=== PATIENT | female | born 1980 | race Caucasian/White ===

== ENCOUNTER 2021-06-24 13:49 | Inpatient (IN) | payer MEDICAID ==
[2021-06-24] MEDS ORDERED: Morphine 4 MG/ML VIAL ONE ×2 (14:06→21:50)
[2021-06-24] MEDS ORDERED: Ondansetron PF 4 MG/2 ML Vial ONE (14:06)
[2021-06-24 14:27] LABS: #Basophils 0.1 10x3/uL (0.0-0.2); #Neutrophils 14.7 10x3/uL (1.5-8.4); %Basophils 0.3 % (0.0-2.0); %Eosinophils 0.2 % (0.0-6.0); %Lymphocytes 12.9 % (18.0-47.0); %Monocytes 5.4 % (0.0-10.0); %Neutrophils 80.4 % (40.0-75.0); Hemoglobin 10.9 g/dL (12.0-15.5); Mean Corpuscular HGB CONC 30.1 g/dL (32.0-36.0); Mean Corpuscular Hemoglobin 23.9 pg (27.0-33.0); Mean Corpuscular Volume 79.2 fl (81.6-98.3); Mean Platelet Volume 9.6 fl (7.4-10.4); Platelet Count 360 10x3/uL (150-450); RBC Distribution Width 16.8 % (11.5-14.5); Red Blood Cell (RBC) Count 4.57 10x6/uL (3.90-5.03); White Blood Cell (WBC) Count 18.3 10x3/uL (3.5-10.5)
[2021-06-24 14:45] LABS: ALT (SGPT) 22 U/L (8-55); AST (SGOT) 19 U/L (5-34); Albumin 3.9 g/dL (3.5-5.0); Alkaline Phosphatase 91 U/L (40-110); Anion Gap 17 mmol/L (10-20); BUN (Urea Nitrogen) 15 mg/dL (7.0-18.7); Bilirubin, Total 0.4 mg/dL (0.2-1.2); Calc. Creatinine Clearance 0 mL/min (70-130); Calcium 9.2 mg/dL (7.8-10.44); Carbon Dioxide 20 mmol/L (22-29); Chloride 106 mmol/L (98-107); Globulin 3.4 g/dL (2.4-3.5); Glucose 165 mg/dL (70-105); Potassium 3.5 mmol/L (3.5-5.1); Protein, Total 7.3 g/dL (6.0-8.3); Sodium 139 mmol/L (136-145)
[2021-06-24 14:50] LABS: Hypochromia SLIGHT = 6-15 cells (100X) (0-5/hpf)
[2021-06-24 14:51] LABS: Platelet Morphology Comment Appears Adequate
[2021-06-24] MEDS ORDERED: Promethazine HCl 25 MG/ML VIAL ONE ×2 (15:12→19:51)
[2021-06-24] MEDS ORDERED: HYDROmorphone 0.5 MG/0.5 ML SYRINGE ONE ×3 (15:12→19:44)
[2021-06-24 15:35] LABS: Lipase 12917 U/L (8-78)
[2021-06-24] MEDS ORDERED: Metoclopramide HCl 10 MG/2 ML VIAL ONE (16:47)
[2021-06-24 17:13] LABS: Bilirubin Neg (Negative); Blood, Urine Negative (Negative); Clarity Slightly Cloudy (Clear); Glucose, Urine (Dipstick) Normal (Negative); Ketone, Urine 5 mg/dL (Negative); Leukocyte Negative (Negative); Nitrite Negative (Negative); Protein, Urine (Dipstick) 15 mg/dl (Neg-Trace); Urobilinogen Normal mg/dL (Less than 2)
[2021-06-24 17:16] LABS: Pregnancy Test - Urine (BHCG) Negative (Negative)
[2021-06-24 17:17] LABS: Pregu Control Background? CLEAR/WHITE (CLR/WHITE); Pregu Control Bar Appear? YES (CONTROL BAR)
[2021-06-24 17:41] LABS: SARS-CoV-2 NAA Rapid Test Not Detected (NotDetected)
[2021-06-24] MEDS ORDERED: Dextrose 50% Abboject 50 ML SYRINGE SLOW IVP PRN (17:58)
[2021-06-24] MEDS ORDERED: Dextrose 5% in Water 1,000 ML IV PRN (17:58)
[2021-06-24 18:23] LABS: BHCG - Serum Negative (NEGATIVE); Pregs Control Background? CLEAR/WHITE (CLR/WHITE); Pregs Control Bar Appear? YES (CONTROL BAR)
[2021-06-24] MEDS ORDERED: HYDROmorphone 0.5 MG/0.5 ML SYRINGE SLOW IVP PRN (18:36)
[2021-06-24] MEDS: Lactated Ringer's 1,000 ML IV SCH (19:01)
[2021-06-24 19:09] LABS: Alcohol Less than 10 mg/dL (Less than 10); Cardiac Risk 2.8 (Less than 4.5); Cholesterol 169 mg/dl (< 200 Desired); HDL Cholesterol 60 mg/dL (>60 Neg Risk); LDL Cholesterol, Calculated 98 mg/dL; Triglycerides 57 mg/dL (Less than 150)
[2021-06-24] MEDS: Promethazine HCl 25 MG/ML VIAL IM PRN (19:54)
[2021-06-24] MEDS: HYDROmorphone 0.5 MG/0.5 ML SYRINGE SLOW IVP PRN (19:56)
[2021-06-24 20:47] LABS: Hemoglobin A1c 6.1 % (4.0-6.0)
[2021-06-24] MEDS: Morphine 4 MG/ML VIAL SLOW IVP PRN (21:55)
[2021-06-25] MEDS ORDERED: HYDROmorphone 0.5 MG/0.5 ML SYRINGE ONE (00:12)
[2021-06-25] MEDS: HYDROmorphone 0.5 MG/0.5 ML SYRINGE SLOW IVP PRN ×3 (00:16→16:20)
[2021-06-25] MEDS: Lactated Ringer's 1,000 ML IV SCH ×6 (00:43→21:05)
[2021-06-25] MEDS: Promethazine HCl 25 MG/ML VIAL IM PRN ×4 (02:19→21:05)
[2021-06-25] MEDS: Morphine 4 MG/ML VIAL SLOW IVP PRN ×4 (02:19→21:04)
[2021-06-25 03:30] VITALS: BMI 36.8
[2021-06-25 04:41] LABS: #Monocytes 0.9 10x3/uL (0.0-1.1); #Neutrophils 17.1 10x3/uL (1.5-8.4); %Basophils 0.2 % (0.0-2.0); %Lymphocytes 4.1 % (18.0-47.0); %Monocytes 4.6 % (0.0-10.0); %Neutrophils 90.6 % (40.0-75.0); Mean Corpuscular Hemoglobin 23.8 pg (27.0-33.0); Mean Corpuscular Volume 79.4 fl (81.6-98.3); Mean Platelet Volume 9.6 fl (7.4-10.4); Platelet Count 272 10x3/uL (150-450); RBC Distribution Width 16.8 % (11.5-14.5); Red Blood Cell (RBC) Count 5.04 10x6/uL (3.90-5.03); White Blood Cell (WBC) Count 18.9 10x3/uL (3.5-10.5)
[2021-06-25] MEDS: HYDROcodone/Acetaminophen 5/325 mg Tablet PO PRN ×3 (05:19→22:49)
[2021-06-25 05:21] LABS: ALT (SGPT) 22 U/L (8-55); AST (SGOT) 20 U/L (5-34); Albumin 3.6 g/dL (3.5-5.0); Alkaline Phosphatase 95 U/L (40-110); Anion Gap 15 mmol/L (10-20); BUN (Urea Nitrogen) 13 mg/dL (7.0-18.7); Bilirubin, Total 0.3 mg/dL (0.2-1.2); Calc. Creatinine Clearance 162 mL/min (70-130); Calcium 8.7 mg/dL (7.8-10.44); Carbon Dioxide 20 mmol/L (22-29); Chloride 106 mmol/L (98-107); Globulin 3.6 g/dL (2.4-3.5); Glucose 227 mg/dL (70-105); Lipase 968 U/L (8-78); Magnesium 1.7 mg/dL (1.6-2.6); Phosphorus 3.7 mg/dL (2.3-4.7); Potassium 4.4 mmol/L (3.5-5.1); Protein, Total 7.2 g/dL (6.0-8.3); Sodium 137 mmol/L (136-145)
[2021-06-25] MEDS: HumaLOG 300 UNITS/3 ML VIAL SC PRN ×2 (05:37→22:49)
[2021-06-25 05:56] LABS: Amphetamine Not Detected (NotDetected); Barbiturates Screen Not Detected (NotDetected); Benzodiazepine Screen Not Detected (NotDetected); Cocaine Metabolite Screen Not Detected (NotDetected); Methadone Not Detected (NotDetected); Methamphetamine Not Detected (NotDetected); Opiate Screen Detected (NotDetected); Oxycodone Screen Not Detected (NotDetected); Phencyclidine (PCP) Not Detected (NotDetected); THC/Cannabinoid Screen Not Detected (NotDetected); Tricyclic Screen Not Detected (NotDetected)
[2021-06-25] MEDS ORDERED: Lactated Ringer's 1,000 ML IV SCH (08:00)
[2021-06-25] MEDS: Simethicone 40 MG/0.6 ML Drop 30 ML BOT PO PRN (22:50)
[2021-06-26] MEDS: HYDROmorphone 0.5 MG/0.5 ML SYRINGE SLOW IVP PRN ×5 (00:11→21:55)
[2021-06-26] MEDS: Lactated Ringer's 1,000 ML IV SCH ×8 (01:10→23:45)
[2021-06-26] MEDS: Morphine 4 MG/ML VIAL SLOW IVP PRN ×4 (03:07→20:52)
[2021-06-26 05:35] LABS: Anion Gap 18 mmol/L (10-20); BUN (Urea Nitrogen) 11 mg/dL (7.0-18.7); Calc. Creatinine Clearance 159 mL/min (70-130); Carbon Dioxide 22 mmol/L (22-29); Chloride 102 mmol/L (98-107); Potassium 4.3 mmol/L (3.5-5.1); Sodium 138 mmol/L (136-145)
[2021-06-26 05:36] LABS: ALT (SGPT) 16 U/L (8-55); AST (SGOT) 29 U/L (5-34); Albumin 3.1 g/dL (3.5-5.0); Alkaline Phosphatase 121 U/L (40-110); Bilirubin, Total 0.7 mg/dL (0.2-1.2); Calcium 9.1 mg/dL (7.8-10.44); Globulin 3.1 g/dL (2.4-3.5); Glucose 162 mg/dL (70-105); Lipase 986 U/L (8-78); Protein, Total 6.2 g/dL (6.0-8.3)
[2021-06-26 05:40] LABS: Hemoglobin 10.7 g/dL (12.0-15.5); Mean Corpuscular HGB CONC 29.5 g/dL (32.0-36.0); Mean Corpuscular Hemoglobin 23.9 pg (27.0-33.0); Mean Corpuscular Volume 81.2 fl (81.6-98.3); Platelet Count 278 10x3/uL (150-450); RBC Distribution Width 17.2 % (11.5-14.5); Red Blood Cell (RBC) Count 4.47 10x6/uL (3.90-5.03); White Blood Cell (WBC) Count 26.6 10x3/uL (3.5-10.5)
[2021-06-26 07:23] LABS: Band 28 % (5-11); Lymphocytes 4 % (21-51); Metamyelocyte 1 % (0-0); Monocytes 5 % (0-10); Neutrophil 62 % (42-75)
[2021-06-26 07:25] LABS: Hypochromia SLIGHT = 6-15 cells (100X) (0-5/hpf); Microcytosis SLIGHT = 6-15 cells (100X) (0-5/hpf)
[2021-06-26 07:26] LABS: Platelet Morphology Comment Appears Adequate
[2021-06-26] MEDS ORDERED: Lactated Ringer's 1,000 ML IV SCH ×2 (09:00)
[2021-06-26] MEDS ORDERED: Piperacillin/Tazobactam 3.375 GM in Sodium Chloride 0.9% 100 ML IVPB SCH (10:00)
[2021-06-26] MEDS: HumaLOG 300 UNITS/3 ML VIAL SC PRN (12:06)
[2021-06-26] MEDS: Piperacillin/Tazobactam 3.375 GM in Sodium Chloride 0.9% 100 ML IVPB SCH ×2 (15:40→21:17)
[2021-06-26] MEDS ORDERED: Enoxaparin Sodium 40 MG/0.4 ML SYRINGE SC SCH (15:45)
[2021-06-26] MEDS: Promethazine HCl 25 MG/ML VIAL IM PRN (21:10)
[2021-06-27] MEDS: Morphine 4 MG/ML VIAL SLOW IVP PRN ×5 (02:09→22:30)
[2021-06-27] MEDS: Promethazine HCl 25 MG/ML VIAL IM PRN ×5 (02:10→22:33)
[2021-06-27] MEDS ORDERED: Morphine 2 MG/ML VIAL SLOW IVP SCH (03:15)
[2021-06-27] MEDS: HYDROmorphone 0.5 MG/0.5 ML SYRINGE SLOW IVP PRN ×3 (03:58→13:48)
[2021-06-27] MEDS: Lactated Ringer's 1,000 ML IV SCH ×5 (05:50→20:48)
[2021-06-27] MEDS: Piperacillin/Tazobactam 3.375 GM in Sodium Chloride 0.9% 100 ML IVPB SCH ×3 (05:51→21:00)
[2021-06-27 06:27] LABS: Anion Gap 12 mmol/L (10-20); BUN (Urea Nitrogen) 9 mg/dL (7.0-18.7); Bilirubin, Total 0.8 mg/dL (0.2-1.2); Calc. Creatinine Clearance 179 mL/min (70-130); Calcium 8.6 mg/dL (7.8-10.44); Carbon Dioxide 27 mmol/L (22-29); Chloride 102 mmol/L (98-107); Glucose 182 mg/dL (70-105); Potassium 3.9 mmol/L (3.5-5.1); Protein, Total 5.9 g/dL (6.0-8.3); Sodium 137 mmol/L (136-145)
[2021-06-27 06:28] LABS: ALT (SGPT) 16 U/L (8-55); AST (SGOT) 27 U/L (5-34); Albumin 2.6 g/dL (3.5-5.0); Alkaline Phosphatase 84 U/L (40-110); Globulin 3.3 g/dL (2.4-3.5); Lipase 452 U/L (8-78)
[2021-06-27 07:17] LABS: #Neutrophils 16.4 10x3/uL (1.5-8.4); %Basophils 0.1 % (0.0-2.0); %Eosinophils 0.1 % (0.0-6.0); %Lymphocytes 4.9 % (18.0-47.0); %Monocytes 5.3 % (0.0-10.0); %Neutrophils 88.7 % (40.0-75.0); Hemoglobin 9.1 g/dL (12.0-15.5); Mean Corpuscular HGB CONC 29.5 g/dL (32.0-36.0); Mean Corpuscular Hemoglobin 23.9 pg (27.0-33.0); Mean Corpuscular Volume 81.1 fl (81.6-98.3); Platelet Count 215 10x3/uL (150-450); White Blood Cell (WBC) Count 18.5 10x3/uL (3.5-10.5)
[2021-06-27 07:22] LABS: Hypochromia MODERATE=16-30 cells (100X) (0-5/hpf); Platelet Morphology Comment Appears Adequate
[2021-06-27] MEDS: Enoxaparin Sodium 40 MG/0.4 ML SYRINGE SC SCH (09:29)
[2021-06-27] MEDS: Simethicone 40 MG/0.6 ML Drop 30 ML BOT PO PRN ×2 (09:31→12:29)
[2021-06-27] MEDS ORDERED: Lactated Ringer's 1,000 ML IV SCH ×2 (18:48→19:00)
[2021-06-27] MEDS: HYDROcodone/Acetaminophen 5/325 mg Tablet PO PRN (19:56)
[2021-06-28] MEDS: Lactated Ringer's 1,000 ML IV SCH ×5 (00:44→21:02)
[2021-06-28] MEDS: Acetaminophen 325 MG TAB PO PRN (03:01)
[2021-06-28] MEDS: HYDROmorphone 0.5 MG/0.5 ML SYRINGE SLOW IVP PRN ×6 (03:02→23:45)
[2021-06-28] MEDS: Simethicone 40 MG/0.6 ML Drop 30 ML BOT PO PRN ×2 (03:03→13:04)
[2021-06-28 05:31] LABS: ALT (SGPT) 14 U/L (8-55); AST (SGOT) 21 U/L (5-34); Albumin 2.3 g/dL (3.5-5.0); Alkaline Phosphatase 82 U/L (40-110); Anion Gap 16 mmol/L (10-20); BUN (Urea Nitrogen) 8 mg/dL (7.0-18.7); Bilirubin, Total 0.6 mg/dL (0.2-1.2); Calc. Creatinine Clearance 219 mL/min (70-130); Calcium 7.7 mg/dL (7.8-10.44); Carbon Dioxide 22 mmol/L (22-29); Chloride 104 mmol/L (98-107); Globulin 2.4 g/dL (2.4-3.5); Glucose 143 mg/dL (70-105); Lipase 148 U/L (8-78); Potassium 3.5 mmol/L (3.5-5.1); Protein, Total 4.7 g/dL (6.0-8.3); Sodium 138 mmol/L (136-145)
[2021-06-28] MEDS: Piperacillin/Tazobactam 3.375 GM in Sodium Chloride 0.9% 100 ML IVPB SCH ×3 (06:33→21:05)
[2021-06-28 06:39] LABS: Hemoglobin 8.2 g/dL (12.0-15.5); Mean Corpuscular HGB CONC 30.1 g/dL (32.0-36.0); Mean Corpuscular Hemoglobin 24.3 pg (27.0-33.0); Mean Corpuscular Volume 80.5 fl (81.6-98.3); Mean Platelet Volume 10.2 fl (7.4-10.4); Platelet Count 196 10x3/uL (150-450); Red Blood Cell (RBC) Count 3.38 10x6/uL (3.90-5.03); White Blood Cell (WBC) Count 16.9 10x3/uL (3.5-10.5)
[2021-06-28 06:52] LABS: MDiff Complete? YES
[2021-06-28 07:00] LABS: Band 12 % (5-11); Eosinophils 1 % (0-10); Lymphocytes 7 % (21-51); Monocytes 4 % (0-10); Neutrophil 76 % (42-75)
[2021-06-28] MEDS: HYDROcodone/Acetaminophen 5/325 mg Tablet PO PRN ×3 (12:37→20:58)
[2021-06-28] MEDS: Enoxaparin Sodium 40 MG/0.4 ML SYRINGE SC SCH (13:04)
[2021-06-29] MEDS: Simethicone 40 MG/0.6 ML Drop 30 ML BOT PO PRN ×2 (00:30→23:18)
[2021-06-29] MEDS: HYDROcodone/Acetaminophen 5/325 mg Tablet PO PRN ×4 (01:17→22:28)
[2021-06-29] MEDS: Lactated Ringer's 1,000 ML IV SCH ×4 (02:05→15:19)
[2021-06-29] MEDS: HYDROmorphone 0.5 MG/0.5 ML SYRINGE SLOW IVP PRN ×2 (03:16→20:42)
[2021-06-29 04:32] LABS: Hemoglobin 8.1 g/dL (12.0-15.5); Mean Corpuscular HGB CONC 30.3 g/dL (32.0-36.0); Mean Platelet Volume 9.7 fl (7.4-10.4); Platelet Count 212 10x3/uL (150-450); RBC Distribution Width 17.2 % (11.5-14.5); Red Blood Cell (RBC) Count 3.38 10x6/uL (3.90-5.03); White Blood Cell (WBC) Count 15.3 10x3/uL (3.5-10.5)
[2021-06-29 04:47] LABS: ALT (SGPT) 15 U/L (8-55); AST (SGOT) 18 U/L (5-34); Albumin 2.4 g/dL (3.5-5.0); Alkaline Phosphatase 88 U/L (40-110); Anion Gap 14 mmol/L (10-20); BUN (Urea Nitrogen) 7 mg/dL (7.0-18.7); Bilirubin, Total 0.5 mg/dL (0.2-1.2); Calc. Creatinine Clearance 224 mL/min (70-130); Calcium 7.8 mg/dL (7.8-10.44); Carbon Dioxide 25 mmol/L (22-29); Chloride 103 mmol/L (98-107); Globulin 2.5 g/dL (2.4-3.5); Glucose 138 mg/dL (70-105); Lipase 85 U/L (8-78); Potassium 3.3 mmol/L (3.5-5.1); Protein, Total 4.9 g/dL (6.0-8.3); Sodium 139 mmol/L (136-145)
[2021-06-29] MEDS: Piperacillin/Tazobactam 3.375 GM in Sodium Chloride 0.9% 100 ML IVPB SCH ×3 (05:22→23:18)
[2021-06-29 05:52] LABS: MDiff Complete? YES
[2021-06-29 05:54] LABS: Band 8 % (5-11); Eosinophils 2 % (0-10); Lymphocytes 10 % (21-51); Monocytes 7 % (0-10); Neutrophil 73 % (42-75)
[2021-06-29 05:56] LABS: Hypochromia MARKED = >30 cells (100X) (0-5/hpf); Platelet Morphology Comment Appears Adequate
[2021-06-29] MEDS: Enoxaparin Sodium 40 MG/0.4 ML SYRINGE SC SCH (08:13)
[2021-06-29] MEDS ORDERED: Iopamidol 30 ML ONE (10:10)
[2021-06-29] MEDS ORDERED: EPINEPHrine 1 MG/ML AMP ONE (10:10)
[2021-06-29] MEDS ORDERED: Bupivacaine 0.25% HCL 30 ML VIAL ONE (10:10)
[2021-06-29] MEDS ORDERED: Bicitra 30 ML UDCUP ONE (10:18)
[2021-06-29] MEDS ORDERED: PROPOFOL 20 ML ONE (10:20)
[2021-06-29] MEDS ORDERED: Fentanyl 100 MCG/2 ML VIAL ONE (10:20)
[2021-06-29] MEDS ORDERED: Dexamethasone 4 mg/ml Vial ONE (10:21)
[2021-06-29] MEDS ORDERED: Rocuronium Bromide 10 MG/ML (10ML VIAL) ONE (10:21)
[2021-06-29] MEDS ORDERED: Lidocaine 1% PF 5 ML VIAL ONE (10:21)
[2021-06-29] MEDS ORDERED: Glycopyrrolate 0.2 MG/ML 5 ML SYRINGE ONE (10:21)
[2021-06-29] MEDS ORDERED: Midazolam HCl 2 mg/2 ml Vial ONE (10:21)
[2021-06-29] MEDS ORDERED: Ondansetron PF 4 MG/2 ML Vial ONE (10:21)
[2021-06-29] MEDS ORDERED: Ketorolac Tromethamine 30 MG/ML VIAL ONE (10:52)
[2021-06-29] MEDS ORDERED: HYDROmorphone 0.5 MG/0.5 ML SYRINGE ONE (11:00)
[2021-06-29] MEDS ORDERED: Bicitra 30 ML UDCUP PO SCH (11:00)
[2021-06-29] MEDS ORDERED: Labetalol HCl 100 MG/20 ML VIAL ONE (13:02)
[2021-06-29] MEDS ORDERED: hydrALAZINE 20 MG/ML VIAL ONE (13:35)
[2021-06-29] MEDS: Potassium Chloride 20 MEQ in Premix Bag 1 BAG IVPB SCH (20:43)
[2021-06-30] MEDS: Potassium Chloride 20 MEQ in Premix Bag 1 BAG IVPB SCH (00:14)
[2021-06-30] MEDS: Acetaminophen 325 MG TAB PO PRN (03:25)
[2021-06-30] MEDS: Lactated Ringer's 1,000 ML IV SCH ×2 (05:14→08:38)
[2021-06-30] MEDS: Piperacillin/Tazobactam 3.375 GM in Sodium Chloride 0.9% 100 ML IVPB SCH ×2 (05:14→15:18)
[2021-06-30] MEDS: HYDROmorphone 0.5 MG/0.5 ML SYRINGE SLOW IVP PRN ×2 (05:15→15:23)
[2021-06-30] MEDS: Simethicone 40 MG/0.6 ML Drop 30 ML BOT PO PRN (06:54)
[2021-06-30] MEDS: Enoxaparin Sodium 40 MG/0.4 ML SYRINGE SC SCH (08:37)
[2021-06-30 12:10] VITALS: TEMP 97.8
[2021-06-30 15:17] VITALS: BP 129/79
== END 2021-06-30 17:22 | disposition home or self-care (01) | DRG 418 ==
LOC: CSHERS 13:49 → UNDOADMIN 17:59 → CSHERHOLD 17:59 → CSHTELE 06-25 01:11 → CSHERHOLD 06-25 01:11 → CSHTELE 06-25 09:28
PROVIDERS: ADMIT Family Medicine; ATTEND Family Medicine
PROC: 0FT44ZZ Resection of Gallbladder, Percutaneous Endoscopic Approach (ICD-10-PCS; principal; 2021-06-29)
PROC: BF141ZZ Fluoroscopy of Gallbladder, Bile Ducts and Pancreatic Ducts using Low Osmolar Contrast (ICD-10-PCS; 2021-06-29)
DX: K85.90 Acute pancreatitis without necrosis or infection, unspecified (principal); S37.30XA Unspecified injury of urethra, initial encounter; T83.091A Other mechanical complication of indwelling urethral catheter, initial encounter; Z20.822 Contact with and (suspected) exposure to COVID-19; R19.7 Diarrhea, unspecified; R73.9 Hyperglycemia, unspecified; D50.9 Iron deficiency anemia, unspecified; R94.31 Abnormal electrocardiogram [ECG] [EKG]; Y65.8 Other specified misadventures during surgical and medical care
CPT/HCPCS: 36415; 36416; 47532; 71045; 74177; 74181; 80053; 80061; 80306; 80307; 81003; 81025; 83036; 83615; 83690; 83735; 84100; 84484; 84703; 85025; 87040; 88304; 93005; 93975; 96374; 96375; 96376; J0171; J0360; J1100; J1170; J1650; J1815; J1885; J2250; J2270; J2405; J2543; J2550; J2704; J2765; J3010; J3480; J3490; J7120; Q9967; S0020; U0002